=== PATIENT | male | born 1965 | race Two or more races ===

== ENCOUNTER 2019-07-22 17:11 | Emergency (ER) | payer OTHER ==
[~2019-07-22] VITALS: Ht 172.7 cm; Wt 76.2 kg
[2019-07-22] MEDS ORDERED: [UNRECOGNIZED DRUG - OTHER] (17:22)
[2019-07-22] MEDS ORDERED: MULTI VITAMIN1 EACH PO (17:22)
== END 2019-07-22 18:49 | disposition home or self-care (01) ==
LOC: ER 17:11
DX: S93.491A Sprain of other ligament of right ankle, initial encounter (principal); X37.1XXA Tornado, initial encounter; Y93.67 Activity, basketball; Y92.39 Other specified sports and athletic area as the place of occurrence of the external cause; Y99.8 Other external cause status

== ENCOUNTER → 2020-12-20 10:30 | Outpatient (CLI) | payer OTHER ==
[~2020-12-20 10:30] MED LIST: MULTI VITAMIN1 EACH PO; [UNRECOGNIZED DRUG - OTHER]
== END | disposition home or self-care (01) ==
LOC: LAB 10:30
DX: R10.84 Generalized abdominal pain (principal); Z00.00 Encounter for general adult medical examination without abnormal findings

== ENCOUNTER 2020-12-20 10:31 | Outpatient (CLI) | payer OTHER | END 2020-12-20 16:31 | disposition HB | LOC: SONOGRAMA 10:31 | DX: Q61.02 Congenital multiple renal cysts (principal); R10.84 Generalized abdominal pain ==

== ENCOUNTER 2021-01-03 08:44 | Outpatient (CLI) | payer OTHER | END 2021-01-03 08:59 | disposition home or self-care (01) | LOC: TOM 08:44 | PROVIDERS: ATTEND Internal Medicine | DX: Q61.02 Congenital multiple renal cysts (principal); K76.0 Fatty (change of) liver, not elsewhere classified ==

== ENCOUNTER → 2021-07-24 14:27 | Outpatient (CLI) | payer OTHER | END | disposition home or self-care (01) | LOC: MRI 14:27 | DX: S80.911A Unspecified superficial injury of right knee, initial encounter (principal) | CPT/HCPCS: 73721 ==